=== PATIENT | male | born 1960 | race African-American/Black ===

== ENCOUNTER 2017-08-21 12:21 | Emergency (ER) | payer OTHER ==
[~2017-08-21] VITALS: Ht 193 cm; Wt 104.5 kg
[2017-08-21] MEDS ORDERED: OXYC10 PO (12:30)
[2017-08-21] MEDS ORDERED: ASPI81 PO (12:30)
[2017-08-21] MEDS ORDERED: GABA-531 PO (12:30)
[2017-08-21] MEDS ORDERED: HYDR25TA PO (12:30)
[2017-08-21] MEDS ORDERED: MORP15 PO (12:30)
[2017-08-21] MEDS ORDERED: ATOR20TA86 PO (12:30)
[2017-08-21] MEDS ORDERED: AMLO-511 PO (12:30)
[2017-08-21 14:31] LABS: BASOPHILS % (AUTO) 0.6 % (0.0-2.0); EOSINOPHILS % (AUTO) 1.1 % (1.0-6.0); HEMATOCRIT 39.9 % (41-53); HEMOGLOBIN 14.1 g/dL (13.5-17.5); LYMPHOCYTES # (AUTO) 1.9 K/uL (1.0-4.8); LYMPHOCYTES % (AUTO) 14.2 % (22.0-44.0); MEAN CORPUSCULAR HEMOGLOBIN 33.5 pg (26.0-34.0); MEAN CORPUSCULAR HGB CONC 35.2 G/dL (31.0-37.0); MEAN CORPUSCULAR VOLUME 95 fL (80-100); MONOCYTES # (AUTO) 0.9 K/uL (0.1-1.0); MONOCYTES % (AUTO) 6.5 % (2.0-9.0); NEUTROPHILS # (AUTO) 10.4 K/uL (1.8-7.7); NEUTROPHILS % (AUTO) 77.6 % (40.0-70.0); PLATELET COUNT (AUTO) 378 K/uL (150-450); RED BLOOD CELL COUNT(AUTO) 4.19 MIL/uL (4.50-5.90); RED CELL DISTRIBUTION WIDTH 11.7 % (11.5-14.5)
[2017-08-21 14:36] LABS: APPEARANCE,URINE CLEAR (CLEAR); GLUCOSE, URINE (UA) NEGATIVE (NEGATIVE); KETONES,URINE NEGATIVE (NEGATIVE); LEUKOCYTE ESTERASE ,URINE NEGATIVE (NEGATIVE); NITRATE,URINE NEGATIVE (NEGATIVE); OCCULT BLOOD,URINE NEGATIVE (NEGATIVE); PROTEIN,URINE NEGATIVE (NEGATIVE)
[2017-08-21 14:42] LABS: ANION GAP 6 mmol/L (8-16); CARBON DIOXIDE 32 mmol/L (22-29); CHLORIDE 95 mmol/L (98-107); CREATININE 1.05 mg/dL (0.60-1.30); GLOMERULAR FILTR. RATE CALC > 60 mL/min (>60); GLUCOSE,RANDOM 87 mg/dL (70-110); POTASSIUM 3.6 mmol/L (3.5-5.1); SODIUM SERUM 133 mmol/L (136-145); UREA NITROGEN, BLOOD 14 mg/dL (7-18)
[2017-08-21 14:48] LABS: ALANINE AMINOTRANSFERASE 60 U/L (12-78); ALBUMIN 3.6 g/dL (3.4-5.0); ALKALINE PHOSPHATASE 111 U/L (46-116); ASPARTATE AMINOTRANSFERASE 25 U/L (15-37); BILIRUBIN,TOTAL 0.5 mg/dL (0.1-1.0); TOTAL PROTEIN, SERUM 8.5 g/dL (6.4-8.2)
[2017-08-21] MEDS ORDERED: TAMSULOSIN HCL 0.4 MG CAPSULE PO ONE (15:00)
[2017-08-21] MEDS ORDERED: SODIUM CHLORIDE 0.9% 1,000 ML IV ONE (15:00)
[2017-08-21] MEDS ORDERED: KETOROLAC TROMETHAMINE 30 MG/ML VIAL IVP ONE (15:00)
[2017-08-21 15:21] LABS: BILIRUBIN,URINE PRELIM. POSITIVE (NEGATIVE)
[2017-08-21 15:27] LABS: BACTERIA,URINE Rare /HPF (None Seen); RBC,URINE 0-2 /HPF (0-2); SQUAMOUS EPITHELIAL CELL,UR Few /LPF (None Seen); WBC,URINE 0-2 /HPF (0-5)
[2017-08-21] MEDS ORDERED: OxyCODONE HCL/ACETAMINOPHEN 5-325 MG TABLET PO ONE (16:15)
[2017-08-21 17:08] VITALS: BP 135/87
== END 2017-08-21 17:33 | disposition home or self-care (01) ==
LOC: EMS 12:23
DX: R10.9 Unspecified abdominal pain (principal); M62.830 Muscle spasm of back; E78.00 Pure hypercholesterolemia, unspecified; I10 Essential (primary) hypertension; G89.29 Other chronic pain; F17.210 Nicotine dependence, cigarettes, uncomplicated; Z79.82 Long term (current) use of aspirin
CPT/HCPCS: 36415; 74176; 80053; 81001; 85025; 96361; 96374; 99285; 99406; J1885; J7030

== ENCOUNTER 2023-04-17 17:54 | Emergency (ER) | payer MEDICARE, OTHER ==
[~2023-04-17] VITALS: Ht 193 cm; Wt 100.0 kg
[~2023-04-17 17:54] MED LIST: AMLO-257 PO; ASPI-1450 PO; ATOR20TA PO; GABA-1181 PO; HYDR25TA2 PO; MORP-130 PO; OXYC10TA59 PO
[2023-04-17 18:24] VITALS: TEMP 98.6
[2023-04-17 21:53] LABS: BASOPHILS % (AUTO) 0.5 % (0.0-2.0); EOSINOPHILS % (AUTO) 1.3 % (1.0-6.0); LYMPHOCYTES # (AUTO) 2.4 K/uL (1.0-4.8); LYMPHOCYTES % (AUTO) 27.3 % (22.0-44.0); MEAN CORPUSCULAR HEMOGLOBIN 33.3 pg (26.0-34.0); MEAN CORPUSCULAR HGB CONC 34.2 G/dL (31.0-37.0); MEAN CORPUSCULAR VOLUME 97 fL (80-100); MONOCYTES # (AUTO) 0.9 K/uL (0.1-1.0); MONOCYTES % (AUTO) 10.2 % (2.0-9.0); NEUTROPHILS # (AUTO) 5.4 K/uL (1.8-7.7); NEUTROPHILS % (AUTO) 60.7 % (40.0-70.0); PLATELET COUNT (AUTO) 209 K/uL (150-450); RED BLOOD CELL COUNT(AUTO) 3.59 MIL/uL (4.50-5.90); RED CELL DISTRIBUTION WIDTH 12.7 % (11.5-14.5); WHITE BLOOD COUNT (AUTO) 8.9 K/uL (4.5-11.0)
[2023-04-17 21:55] LABS: ERYTHROCYTE SEDIMENTATION RATE 20 MM/HR (0-20)
[2023-04-17 22:02] LABS: ANION GAP 5 mmol/L (8-16); CALCIUM, TOTAL 8.5 mg/dL (8.8-10.5); CARBON DIOXIDE 31 mmol/L (22-29); CHLORIDE 103 mmol/L (98-107); CREATININE 0.89 mg/dL (0.60-1.30); GLOMERULAR FILTR. RATE CALC > 60 mL/min (>60); GLUCOSE,RANDOM 122 mg/dL (70-110); POTASSIUM 3.6 mmol/L (3.5-5.1); SODIUM SERUM 139 mmol/L (136-145); UREA NITROGEN, BLOOD 15 mg/dL (7-18)
[2023-04-17 22:11] LABS: LACTIC ACID 0.9 mmol/L (0.4-2.0)
[2023-04-17 22:17] LABS: ALANINE AMINOTRANSFERASE 35 U/L (12-78); ALBUMIN 3.5 g/dL (3.4-5.0); ALKALINE PHOSPHATASE 86 U/L (46-116); ASPARTATE AMINOTRANSFERASE 22 U/L (15-37); BILIRUBIN,TOTAL 0.3 mg/dL (0.1-1.0); C-REACTIVE PROTEIN QUANT 1.24 mg/dL (0.00-0.30); TOTAL PROTEIN, SERUM 7.5 g/dL (6.4-8.2)
[2023-04-17] MEDS ORDERED: SULFAMETHOX/TRIMETH DS 800-160 MG/TABLET PO ONE (22:45)
[2023-04-17] MEDS ORDERED: CefTRIAXone SODIUM 1 GM/VIAL IM ONE (22:45)
[2023-04-17] MEDS ORDERED: LIDOCAINE/PF 1% 2 ML VIAL IM ONE (22:45)
[2023-04-17] MEDS ORDERED: HYDROCODONE/ACETAMINOPHEN 5-325 MG TABLET PO ONE (22:45)
[2023-04-17] MEDS ORDERED: PIPERACILLIN/TAZO 3.375 GM/D5W 50 ML IV ONE (23:00)
[2023-04-17] MEDS ORDERED: CEPH-558 PO (23:13)
[2023-04-17] MEDS ORDERED: SULF-261 PO (23:13)
[2023-04-17] MEDS ORDERED: HYDR-4723 PO (23:13)
[2023-04-17 23:31] VITALS: BP 174/89; PULSE 65; RESP 18
== END 2023-04-18 00:36 | disposition home or self-care (01) ==
LOC: EMS 18:17
DX: L03.113 Cellulitis of right upper limb (principal); E78.00 Pure hypercholesterolemia, unspecified; I10 Essential (primary) hypertension; F17.210 Nicotine dependence, cigarettes, uncomplicated; Z90.49 Acquired absence of other specified parts of digestive tract; Z96.649 Presence of unspecified artificial hip joint
CPT/HCPCS: 99284; 96365; 80053; 87205; 83605; 85025; 85651; 86140; 87040; 36415; 73130; 87070; J2543

== ENCOUNTER → 2023-07-16 | Emergency (ER) | payer MEDICARE, OTHER ==
[~2023-07-16] VITALS: Ht 193 cm; Wt 100.0 kg
[~2023-07-16] MED LIST changes: +ACET-3385 PO; -AMLO-257 PO; -ASPI-1450 PO; -ATOR20TA PO; +BACL10TA PO; +CEPH-558 PO; -GABA-1181 PO; +HYDR-4723 PO; -HYDR25TA2 PO; +IOHEXOL 350 MG/ML 100 ML VIAL ONE; -MORP-130 PO; -OXYC10TA59 PO; +SODIUM CHLORIDE 0.9% 100 ML ONE; +SULF-261 PO
[2023-07-16 14:43] VITALS: TEMP 98.7
[2023-07-16 16:12] LABS: BASOPHILS % (AUTO) 0.3 % (0.0-2.0); EOSINOPHILS % (AUTO) 0.2 % (1.0-6.0); HEMOGLOBIN 15.1 g/dL (13.5-17.5); LYMPHOCYTES # (AUTO) 1.1 K/uL (1.0-4.8); LYMPHOCYTES % (AUTO) 10.6 % (22.0-44.0); MEAN CORPUSCULAR HEMOGLOBIN 32.6 pg (26.0-34.0); MEAN CORPUSCULAR HGB CONC 33.6 G/dL (31.0-37.0); MEAN CORPUSCULAR VOLUME 97 fL (80-100); MONOCYTES # (AUTO) 0.5 K/uL (0.1-1.0); MONOCYTES % (AUTO) 4.7 % (2.0-9.0); NEUTROPHILS # (AUTO) 8.5 K/uL (1.8-7.7); NEUTROPHILS % (AUTO) 84.2 % (40.0-70.0); PLATELET COUNT (AUTO) 241 K/uL (150-450); RED BLOOD CELL COUNT(AUTO) 4.63 MIL/uL (4.50-5.90); RED CELL DISTRIBUTION WIDTH 12.7 % (11.5-14.5); WHITE BLOOD COUNT (AUTO) 10.1 K/uL (4.5-11.0)
[2023-07-16] MEDS: BACLOFEN 10 MG TABLET PO ONE (16:18)
[2023-07-16] MEDS: FAMOTIDINE 20 MG/2 ML VIAL IVP ONE (16:18)
[2023-07-16] MEDS: ONDANSETRON HCL 4 MG/2 ML VIAL IVP ONE (16:18)
[2023-07-16 16:19] LABS: ANION GAP 8 mmol/L (8-16); CALCIUM, TOTAL 9.5 mg/dL (8.8-10.5); CARBON DIOXIDE 28 mmol/L (22-29); CHLORIDE 97 mmol/L (98-107); CREATININE 0.85 mg/dL (0.60-1.30); GLOMERULAR FILTR. RATE CALC > 60 mL/min (>60); GLUCOSE,RANDOM 116 mg/dL (70-110); POTASSIUM 4.4 mmol/L (3.5-5.1); SODIUM SERUM 133 mmol/L (136-145); UREA NITROGEN, BLOOD 11 mg/dL (7-18)
[2023-07-16] MEDS: SODIUM CHLORIDE 0.9% 1,000 ML IV ONE (16:19)
[2023-07-16] MEDS: LIDOCAINE 5% TRANSDERMAL PATCH TD ONE (16:19)
[2023-07-16 16:25] LABS: ALANINE AMINOTRANSFERASE 35 U/L (12-78); ALBUMIN 4.1 g/dL (3.4-5.0); ALKALINE PHOSPHATASE 86 U/L (46-116); ASPARTATE AMINOTRANSFERASE 25 U/L (15-37); BILIRUBIN,TOTAL 0.7 mg/dL (0.1-1.0); TOTAL PROTEIN, SERUM 8.7 g/dL (6.4-8.2)
[2023-07-16 20:25] VITALS: BP 175/92; PULSE 65; RESP 18
[2023-07-16 20:49] LABS: APPEARANCE,URINE CLEAR (CLEAR); BILIRUBIN,URINE NEGATIVE (NEGATIVE); COLOR,URINE LIGHT YELLOW (YELLOW); GLUCOSE, URINE (UA) NEGATIVE (NEGATIVE); KETONES,URINE TRACE mg/dL (NEGATIVE); LEUKOCYTE ESTERASE ,URINE NEGATIVE (NEGATIVE); NITRATE,URINE NEGATIVE (NEGATIVE); OCCULT BLOOD,URINE NEGATIVE (NEGATIVE); PH,URINE 6.5 (5.0-8.0); PROTEIN,URINE 30-70 mg/dL (NEGATIVE); UROBILINOGEN,URINE <=1.0 mg/dL (<=1.0)
[2023-07-16 20:54] LABS: BACTERIA,URINE None Seen /HPF (None Seen); RBC,URINE None Seen /HPF (0-2); SQUAMOUS EPITHELIAL CELL,UR Few /LPF (None Seen); WBC,URINE None Seen /HPF (0-5)
== END | disposition still patient (30) ==
LOC: EMS 15:27
DX: M54.32 Sciatica, left side (principal); R10.33 Periumbilical pain; E78.00 Pure hypercholesterolemia, unspecified; I10 Essential (primary) hypertension; F17.210 Nicotine dependence, cigarettes, uncomplicated; Z90.49 Acquired absence of other specified parts of digestive tract; Z96.649 Presence of unspecified artificial hip joint
CPT/HCPCS: 99285; 74177; 96374; 96361; 96375; 80053; 81001; 85025; 36415; J3490; J2405; Q9967; J7030; J7050

== ENCOUNTER 2024-10-15 07:29 | Emergency (ER) | payer OTHER ==
[~2024-10-15] VITALS: Ht 193 cm; Wt 95.5 kg
[~2024-10-15 07:29] MED LIST changes: -CEPH-558 PO; -HYDR-4723 PO; -IOHEXOL 350 MG/ML 100 ML VIAL ONE; -SODIUM CHLORIDE 0.9% 100 ML ONE; -SULF-261 PO
[2024-10-15 07:31] VITALS: TEMP 98.1
[2024-10-15 08:00] LABS: COVID AG,FIA SOURCE NASAL SWAB
[2024-10-15 08:34] LABS: SARS-COV2 (COVID) ANTIGEN,FIA Negative (Negative)
[2024-10-15 08:35] LABS: INFLUENZA TYPE A NEGATIVE FOR TYPE A (NEGATIVE); INFLUENZA TYPE B NEGATIVE FOR TYPE B (NEGATIVE)
[2024-10-15 09:08] LABS: BASOPHILS % (AUTO) 0.7 % (0.0-2.0); EOSINOPHILS % (AUTO) 1.9 % (1.0-6.0); HEMATOCRIT 30.8 % (41-53); HEMOGLOBIN 10.1 g/dL (13.5-17.5); LYMPHOCYTES # (AUTO) 1.4 K/uL (1.0-4.8); LYMPHOCYTES % (AUTO) 23.8 % (22.0-44.0); MEAN CORPUSCULAR HEMOGLOBIN 31.1 pg (26.0-34.0); MEAN CORPUSCULAR HGB CONC 32.8 G/dL (31.0-37.0); MEAN CORPUSCULAR VOLUME 95 fL (80-100); MONOCYTES # (AUTO) 0.5 K/uL (0.1-1.0); MONOCYTES % (AUTO) 8.1 % (2.0-9.0); NEUTROPHILS # (AUTO) 3.8 K/uL (1.8-7.7); NEUTROPHILS % (AUTO) 65.5 % (40.0-70.0); PLATELET COUNT (AUTO) 252 K/uL (150-450); RED BLOOD CELL COUNT(AUTO) 3.24 MIL/uL (4.50-5.90); RED CELL DISTRIBUTION WIDTH 13.8 % (11.5-14.5); WHITE BLOOD COUNT (AUTO) 5.7 K/uL (4.5-11.0)
[2024-10-15 09:10] LABS: ANION GAP 4 mmol/L (8-16); CALCIUM, TOTAL 8.5 mg/dL (8.8-10.5); CARBON DIOXIDE 29 mmol/L (22-29); CHLORIDE 106 mmol/L (98-107); CREATININE 1.03 mg/dL (0.60-1.30); GLOMERULAR FILTR. RATE CALC > 60 mL/min (>60); GLUCOSE,RANDOM 140 mg/dL (70-110); POTASSIUM 3.6 mmol/L (3.5-5.1); SODIUM SERUM 139 mmol/L (136-145); UREA NITROGEN, BLOOD 19 mg/dL (7-18)
[2024-10-15 09:17] LABS: ALANINE AMINOTRANSFERASE 41 U/L (12-78); ALBUMIN 2.6 g/dL (3.4-5.0); ALKALINE PHOSPHATASE 89 U/L (46-116); ASPARTATE AMINOTRANSFERASE 24 U/L (15-37); BILIRUBIN,TOTAL 0.3 mg/dL (0.1-1.0); TOTAL PROTEIN, SERUM 7.2 g/dL (6.4-8.2)
[2024-10-15 09:20] LABS: LACTIC ACID 1.6 mmol/L (0.4-2.0)
[2024-10-15] MEDS: PIPERACILLIN/TAZO 3.375 GM/D5W 50 ML IV ONE (09:48)
[2024-10-15] MEDS: VANCOMYCIN 1GM/WATER(PEG/NADA) 200 ML IV ONE (09:48)
[2024-10-15] MEDS ORDERED: IBUP-1492 PO (10:18)
[2024-10-15] MEDS ORDERED: CEPH-558 PO (10:18)
[2024-10-15] MEDS ORDERED: BACTDSB PO (10:18)
[2024-10-15] MEDS: HYDROCODONE/ACETAMINOPHEN 5-325 MG TABLET PO ONE (10:39)
[2024-10-15] MEDS: KETOROLAC TROMETHAMINE 30 MG/ML VIAL IVP ONE (10:40)
[2024-10-15 11:58] VITALS: BP 145/84; PULSE 82; RESP 16; O2SAT 99
[2024-10-18] MEDS ORDERED: BACTDSB PO (15:28)
== END 2024-10-15 12:07 | disposition home or self-care (01) ==
LOC: EMS 07:31
DX: L03.116 Cellulitis of left lower limb (principal); E78.00 Pure hypercholesterolemia, unspecified; I10 Essential (primary) hypertension; F17.210 Nicotine dependence, cigarettes, uncomplicated; Z90.49 Acquired absence of other specified parts of digestive tract; Z98.890 Other specified postprocedural states; Z20.822 Contact with and (suspected) exposure to COVID-19
CPT/HCPCS: 99284; 96365; 96366; 96375; 87426; 80048; 80076; 83605; 85025; 87040; 87804; 36415; 93005; 96368; 84145; J1885; J2543; J3490; 96367